=== PATIENT | male | born 1970 | race Two or more races ===

== ENCOUNTER → 2017-01-12 | Outpatient (CLI) | payer OTHER ==
[~2017-01-12] MED LIST: PENICILLIN V P500 MG PO; TYLENOL #3 PO; ZOFRAN PO
--- NOTE | ~2017-01-12 | ST ---
Unit #: [id number] #: [id number] Patient: CHINYERE OSHEA [id number] [facility]. [address] [place], [place] [address] [id number] O MR#: [id number] NAME: CHINYERE OSHEA : 1970 SEX: M STUDY DATE/TIME: 01/12/2017 UNIT: [facility] ROOM: STUDY DESCRIPTION: Exercise stress test Attending Physician: Michael Aguirre M.D. Referring Physician: Michael Aguirre M.D. Primary Care Physician: Benjy Ortega M.D. CARDIOLOGY REPORT PROCEDURE PERFORMED Exercise Cardiolite stress test. PROCEDURE BASELINE EKG: Sinus bradycardia, heart rate 57 beats per minute, early repolarization inferolateral leads, poor R wave progression, low voltage in AVF. The patient walked on the treadmill for 8 minutes and 40 seconds utilizing the Kannan protocol, achieving a workload of 10.5 METS. He achieved 86% of the maximum target heart rate at 151 beats per minute with a maximum blood pressure response of 180/118 mmHg. EKG during the test was equivocal to baseline. No acute ischemic changes. Continues to show early repolarization throughout most leads. The patient had no complaints of chest pain, palpitations or dizziness. Had increased shortness of breath and fatigue, which resolved in the recovery phase. IMPRESSION 1. Functional class 3 with a workload of 10.5 METS. 2. Patient walked for 8 minutes and 40 seconds achieving 86% of maximum target heart rate at 151 beats per minute with a hypertensive blood pressure response of 180/118 mmHg. 3. It is noted at the end of recovery phase the patient's blood pressure was 153/100 mmHg. 4. Patient had no complaints of chest pain, palpitations or dizziness. Had increased shortness of breath and fatigue, which resolved in recovery phase. 5. At peak exercise the patient had frequent premature ventricular complexes. 6. Cardiolite was injected at maximum target heart rate. Radionuclide test pending. Please correlate with nuclear images. 7. Discussed the patient's elevated blood pressure and premature ventricular complexes with Dr. Aguirre. Will start the patient on lisinopril/Hydrochlorothiazide 20/12.5 mg 1 tablet daily and atenolol 25 mg 1 tablet daily. He will follow up with Dr. Aguirre. Dictated by... Ashtyn Calvillo A.P.R.N. for Denisa Berger M.D. Unit #: [id number] #: [id number] Patient: CHINYERE OSHEA ONI/angelina TD: 01/12/2017 12:34 JOB #: [id number] CARDIOLOGY REPORT Page 1 of 1 X Ashtyn Calvillo APRN CARDIOLOGY REPORT
--- NOTE | ~2017-01-12 | TH ---
Unit #: [id number] #: [id number] Patient: CHINYERE OSHEA [id number] [address] [address] [id number] O MR#: [id number] NAME: CHINYERE OSHEA : 1970 SEX: M STUDY DATE/TIME: 01/12/2017 UNIT: [facility] ROOM: STUDY DESCRIPTION: Attending Physician: Michael Aguirre M.D. Referring Physician: Michael Aguirre M.D. Primary Care Physician: Benjy Ortega M.D. CARDIOLOGY REPORT EXAM Exercise Cardiolite stress test, nuclear portion. PROCEDURE Using technetium 99m labeled Cardiolite, rest and stress SPECT images were obtained. Multiple SPECT images were obtained in various views including horizontal and vertical long axis and short axis views of the left ventricle. Images were obtained by gated SPECT method. The patient was administered 9.8 mCi of Cardiolite at rest. The patient was administered 33.3 mCi of Cardiolite at peak exercise. Total exercise time is 8 minutes and 40 seconds. On the stress images, there is normal perfusion noted. The rest images show normal perfusion. Comparing rest and stress images, there is no stress-induced ischemia noted. The left ventricular ejection fraction is calculated to be 63%. There is no focal wall motion abnormality seen. CONCLUSION 1. No stress-induced ischemia noted. 2. The left ventricular ejection fraction is calculated to be 63%. 3. There is no focal wall motion abnormality seen. 4. Normal nuclear portion of the stress test. It must be noted that the patient's blood pressure was elevated during the stress test and also had frequent single premature ventricular complexes noted. Dictated by..Mayela Betancur TD: 01/12/2017 15:14 JOB #: [id number] Unit #: [id number] #: [id number] Patient: CHINYERE OSHEA CARDIOLOGY REPORT Page 1 of 1 X Denisa Berger MD <ELECTRONICALLY SIGNED> 03/14/17 [id number] CARDIOLOGY REPORT
== END | disposition home or self-care (01) ==
LOC: CNUC 07:43
DX: R07.9 Chest pain, unspecified (principal)
CPT/HCPCS: 78452; 93017; A9500